=== PATIENT | female | born 1975 | race Caucasian/White ===

== ENCOUNTER 2019-01-13 06:18 | Inpatient (IN) | payer OTHER ==
[~2019-01-13] VITALS: Ht 162.6 cm; Wt 99.8 kg
[2019-01-13 06:34] VITALS: BP 157/75
[2019-01-13 14:11] VITALS: BP 105/51
[2019-01-13 17:32] VITALS: BP 118/70
[2019-01-13 19:47] VITALS: BP 106/61
[2019-01-14 04:22] VITALS: BP 103/63
[2019-01-14 06:19] LABS: BASOPHIL % 0.2 % (0-2); PLATELET COUNT 309 x10^3mcL (130-400); RED CELL DISTRIBUTION WIDTH 13.7 % (11.5-14.5)
[2019-01-14 09:19] VITALS: BP 105/62
[2019-01-14 12:28] VITALS: BP 105/62
== END 2019-01-14 13:20 | disposition home or self-care (01) | DRG 513 ==
LOC: MU 06:18
PROVIDERS: ADMIT Obstetrics & Gynecology
PROC: 0UT10ZZ Resection of Left Ovary, Open Approach (ICD-10-PCS; 2019-01-13)
PROC: 0UDB7ZZ Extraction of Endometrium, Via Natural or Artificial Opening (ICD-10-PCS; 2019-01-13)
PROC: 0UB50ZZ Excision of Right Fallopian Tube, Open Approach (ICD-10-PCS; 2019-01-13)
PROC: 0UT60ZZ Resection of Left Fallopian Tube, Open Approach (ICD-10-PCS; principal; 2019-01-13 07:30)
DX: N92.1 Excessive and frequent menstruation with irregular cycle (principal); E27.9 Disorder of adrenal gland, unspecified; N73.6 Female pelvic peritoneal adhesions (postinfective); N70.11 Chronic salpingitis; R10.2 Pelvic and perineal pain
CPT/HCPCS: 82962; J0690; J1170; J2250; J2270; J2405; J3010; J3490; J7030

== ENCOUNTER 2019-01-17 11:23 | Emergency (ER) | payer OTHER ==
[~2019-01-17] VITALS: Ht 162.6 cm; Wt 108.4 kg
[2019-01-17 11:40] VITALS: Ht 162.6 cm; Wt 108.4 kg
[2019-01-17 12:52] VITALS: BP 122/76
== END 2019-01-17 13:37 | disposition home or self-care (01) ==
LOC: ED 11:23
DX: Z48.01 Encounter for change or removal of surgical wound dressing (principal); I10 Essential (primary) hypertension; E11.9 Type 2 diabetes mellitus without complications